=== PATIENT | female | born 1975 | race Caucasian/White ===

== ENCOUNTER 2016-09-01 20:51 | Emergency (ER) | payer BC ==
[2016-09-01] MEDS ORDERED: ATIVAN INJ 2 MG VIAL IVP ONE (21:05)
[2016-09-01] MEDS ORDERED: NS 1000 ML 1,000 ML IV ONE (21:05)
--- NOTE | 2016-09-01 21:07 | DR.GENAD ---
HPI - PCP Primary Care Physician: kyle - Complaint/Symptoms Chief Complaint Doctors Comments: Patient presents with family member with complain of having severe anxiety attack. He states that she has had these attacks for greather than twenty years. They are not sure as to the etiology but lorazepam usually calms her down. She underwent an endoscope last week and had an episode of spasm that resolved overnight. She has no history of seizure or trauma. PMH - PMH Past Medical History: Hypothyroidism Past Surgical History: Yes ROS - Review of Systems Constitutional: No Symptoms Reported Eyes: No Symptoms Reported ENTM: No Symptoms Reported Respiratoy: No Symptoms Reported Cardiovascular: No Symptoms Reported Gastrointestinal/Abdominal: No Symptoms Reported Genitourinary: No Symptoms Reported Neurological: No Symptoms Reported, Other (flexion/extension of extremities) Musculoskeletal: No Symptoms Reported Integumentary: No Symptoms Reported Hematologic/Lymphatic: No Symptoms Reported Endocrine: No Symptoms Reported Psychiatric: No Symptoms Reported All Other Systems: Reviewed and Negative PE - Vital Signs Vitals: Temperature 99 F Pulse Rate [Apical] 95 Pulse Rate 119 Respiratory Rate 18 Blood Pressure [Right Arm] 145/68 Blood Pressure 157/80 O2 Sat by Pulse Oximetry 100 - General Limitations: No Limitations General Appearance: Alert, In No Apparent Distress - Head Head Exam: Normal Inspection, Atraumatic - Eyes Eye exam: Normal Appearance, PERRL, EOMI - ENT ENT Exam: Normal Exam External Ear Exam: Normal External Inspection TM/Canal Exam: Bilateral Normal Nose Exam: Normal Nose Exam Mouth Exam: Normal Inspection Throat Exam: Normal Inspection - Neck Neck Exam: Normal Inspection - Chest Chest Inspection: Normal Inspection - Respiratory Respiratory Exam: Normal Lung Sounds Bilat Respiratory Exam: Bilateral Clear to Auscultation - Cardiovascular Cardiovascular Exam: Regular Rate, Normal Rhythm - Abdominal Exam Abdominal Exam: Normal Inspection, Normal Bowel Sounds Abdominal Tenderness: negative: RUQ, RLQ, LUQ, LLQ, Epigastrium, Suprapubic, Diffuse, Mild, Moderate, Severe, Other - Extremities Extremities Exam: Normal Inspection, Full ROM - Back Back Exam: Normal Inspection, Full ROM - Neurologic Neurological Exam: Alert, Oriented X3, CN II-XII Intact Course - Treatment Treatment: Potassium, NS - Reevaluation 1st: Improved ROR - Labs Reviewed Result Diagrams: 09/01/16 21:49 09/02/16 00:24 Laboratory: WBC 9.5 X10^3/uL (3.6-10.0) 09/01/16 21:49 RBC 4.06 X10^6/uL (3.5-5.4) 09/01/16 21:49 Hgb 10.5 g/dL (12.0-16.0) L 09/01/16 21:49 Hct 32.1 % (36.0-47.0) L 09/01/16 21:49 MCV 79.2 fL (80.0-100.0) L 09/01/16 21:49 MCH 25.9 pg (27.0-34.0) L 09/01/16 21:49 MCHC 32.7 g/dL (33.0-35.0) L 09/01/16 21:49 RDW 14.4 % (11.6-16.5) 09/01/16 21:49 Plt Count 233 X10^3/uL (150.0-450.0) 09/01/16 21:49 Plt Count Comment Adequate (ADEQUATE) 09/01/16 21:49 MPV 9.1 fL (7.4-11.0) 09/01/16 21:49 Neut % 74.9 % (42.0-75.0) 09/01/16 21:49 Lymph % 15.9 % (21.0-51.0) L 09/01/16 21:49 Turner % 8.0 % (0.0-13.0) 09/01/16 21:49 Eos % 0.5 % (0.9-2.9) L 09/01/16 21:49 Baso % 0.7 % (0.2-1.0) 09/01/16 21:49 Neut # 7.2 x10^3/uL (2.2-4.8) H 09/01/16 21:49 Lymph # 1.5 X10^3/uL (1.3-2.9) 09/01/16 21:49 Turner # 0.8 x10^3/uL (0.3-0.8) 09/01/16 21:49 Eos # 0.0 x10^3/uL (0.0-0.2) 09/01/16 21:49 Baso # 0.1 X10^3/uL (0.0-0.1) 09/01/16 21:49 Absolute Nucleated RBC 0.0 /100WBC 09/01/16 21:49 Plt Morphology Comment Normal (NORMAL) 09/01/16 21:49 RBC Morphology Abnormal (NORMAL) A 09/01/16 21:49 Hypochromasia Slight A 09/01/16 21:49 Sodium 140 mmol/L (136-145) 09/01/16 21:49 Corrected Sodium TNP 09/01/16 21:49 Potassium 3.8 mmol/L (3.5-5.1) 09/02/16 00:24 Chloride 105 mmol/L (98-107) 09/01/16 21:49 Carbon Dioxide 21.5 mmol/L (21-32) 09/01/16 21:49 BUN 8 mg/dL (7-18) 09/01/16 21:49 Creatinine 0.64 mg/dL (0.55-1.02) 09/01/16 21:49 Est GFR (MDRD) Af Amer > 60 (>60) 09/01/16 21:49 Est GFR (MDRD) Non-Af > 60 (>60) 09/01/16 21:49 Glucose 100 mg/dL (65-99) H 09/01/16 21:49 Calcium 8.4 mg/dL (8.5-10.1) L 09/01/16 21:49 Corrected Calcium TNP 09/01/16 21:49 Phosphorus 2.4 mg/dL (2.6-4.7) L 09/01/16 21:49 Magnesium 1.6 mg/dL (1.7-2.9) L 09/01/16 21:49 Total Bilirubin 0.60 mg/dL (0.2-1.0) 09/01/16 21:49 AST 13 Units/L (15-37) L 09/01/16 21:49 ALT 17 Units/L (12-78) 09/01/16 21:49 Alkaline Phosphatase 40 Units/L (46-116) L 09/01/16 21:49 Total Protein 7.5 g/dL (6.4-8.2) 09/01/16 21:49 Albumin 3.9 g/dL (3.4-5.0) 09/01/16 21:49 Globulin 3.6 g/dL (2.5-4.5) 09/01/16 21:49 Albumin/Globulin Ratio 1.1 Ratio (1.1-2.1) 09/01/16 21:49 Specimen Type Clean catch urine 09/01/16 23:49 Urine Color Pale yellow (YELLOW) 09/01/16 23:49 Urine Appearance Clear (CLEAR) 09/01/16 23:49 Urine pH 8.0 (5.0 - 8.0) 09/01/16 23:49 Ur Specific [place] 1.010 (1.000-1.030) 09/01/16 23:49 Urine Protein Negative (NEGATIVE) 09/01/16 23:49 Urine Glucose (UA) Negative (NEGATIVE) 09/01/16 23:49 Urine Ketones Negative (NEGATIVE) 09/01/16 23:49 Urine Occult Blood Negative (NEGATIVE) 09/01/16 23:49 Urine Nitrite Negative (NEGATIVE) 09/01/16 23:49 Urine Bilirubin Negative (NEGATIVE) 09/01/16 23:49 Urine Urobilinogen Normal (NORMAL) 09/01/16 23:49 Ur Leukocyte Esterase Negative (NEGATIVE) 09/01/16 23:49 Urine RBC 0-3 /HPF (NEGATIVE) 09/01/16 23:49 Urine WBC 0-3 /HPF (NEGATIVE) 09/01/16 23:49 Ur Squamous Epith Cells Rare /HPF (NEGATIVE) 09/01/16 23:49 Urine Bacteria Negative /HPF (NEGATIVE) 09/01/16 23:49 Ur Culture Indicated? No/not indicated 09/01/16 23:49 - Diagnosis Discharge Problem: Hypokalemia - Discharge Plan Condition: Stable - Follow ups/Referrals Follow ups/Referrals: NFD,None [Primary Care Provider] - 3 days - Instructions
[2016-09-01] MEDS ORDERED: NS 1000 ML 1,000 ML ONE (21:08)
[2016-09-01] MEDS ORDERED: ATIVAN INJ 2 MG VIAL ONE (21:09)
[2016-09-01 21:11] VITALS: BMI 16.9
[2016-09-01 21:56] LABS: BASOPHILS # (AUTO) 0.1 X10^3/uL (0.0-0.1); BASOPHILS % (AUTO) 0.7 % (0.2-1.0); EOSINOPHILS % (AUTO) 0.5 % (0.9-2.9); HEMATOCRIT 32.1 % (36.0-47.0); HEMOGLOBIN 10.5 g/dL (12.0-16.0); LYMPHOCYTES # (AUTO) 1.5 X10^3/uL (1.3-2.9); LYMPHOCYTES % (AUTO) 15.9 % (21.0-51.0); MEAN CORPUSCULAR HEMOGLOBIN 25.9 pg (27.0-34.0); MEAN CORPUSCULAR HGB CONC 32.7 g/dL (33.0-35.0); MEAN CORPUSCULAR VOLUME 79.2 fL (80.0-100.0); MEAN PLATELET VOLUME 9.1 fL (7.4-11.0); MONOCYTES # (AUTO) 0.8 x10^3/uL (0.3-0.8); NEUTROPHILS # (AUTO) 7.2 x10^3/uL (2.2-4.8); NEUTROPHILS % (AUTO) 74.9 % (42.0-75.0); PLATELET COUNT 233 X10^3/uL (150.0-450.0); RED BLOOD COUNT 4.06 X10^6/uL (3.5-5.4); RED CELL DISTRIBUTION WIDTH 14.4 % (11.6-16.5); WHITE BLOOD COUNT 9.5 X10^3/uL (3.6-10.0)
[2016-09-01 22:06] LABS: BLOOD UREA NITROGEN 8 mg/dL (7-18); CALCIUM 8.4 mg/dL (8.5-10.1); CARBON DIOXIDE 21.5 mmol/L (21-32); CHLORIDE 105 mmol/L (98-107); CREATININE 0.64 mg/dL (0.55-1.02); GLUCOSE 100 mg/dL (65-99); SODIUM 140 mmol/L (136-145); eGFR BLACK RACES > 60 (>60); eGFR NON BLACK RACES > 60 (>60)
[2016-09-01 22:11] LABS: ALANINE AMINOTRANSFERASE 17 Units/L (12-78); ALBUMIN 3.9 g/dL (3.4-5.0); ALKALINE PHOSPHATASE 40 Units/L (46-116); ASPARTATE AMINO TRANSFERASE 13 Units/L (15-37); TOTAL PROTEIN 7.5 g/dL (6.4-8.2)
[2016-09-01 22:13] LABS: PLATELET MORPHOLOGY COMMENT NORMAL (NORMAL)
[2016-09-01 22:15] LABS: HYPOCHROMASIA SLIGHT; MAGNESIUM 1.6 mg/dL (1.7-2.9); PHOSPHORUS 2.4 mg/dL (2.6-4.7)
[2016-09-01] MEDS ORDERED: K-LYTE EFFERVESCENT ONE (22:15)
[2016-09-01] MEDS ORDERED: K-DUR TAB 20 MEQ PO ONE ×2 (22:56→23:51)
[2016-09-01] MEDS ORDERED: K-LYTE EFFERVESCENT PO SCH (23:00)
[2016-09-02 00:02] LABS: BILIRUBIN,URINE NEGATIVE (NEGATIVE); BLOOD/HEMOGLOBIN,URINE NEGATIVE (NEGATIVE); GLUCOSE, URINE NEGATIVE (NEGATIVE); KETONES,URINE NEGATIVE (NEGATIVE); LEUKOCYTE ESTERASE ,URINE NEGATIVE (NEGATIVE); NITRITES,URINE NEGATIVE (NEGATIVE); PROTEIN,URINE NEGATIVE (NEGATIVE); UROBILINOGEN,URINE NORMAL (NORMAL)
[2016-09-02 00:09] LABS: APPEARANCE,URINE CLEAR (CLEAR); BACTERIA,URINE NEGATIVE /HPF (NEGATIVE); COLOR,URINE PALE YELLOW (YELLOW); RBC,URINE 0-3 /HPF (NEGATIVE); SQUAMOUS EPITHELIAL CELL,UR RARE /HPF (NEGATIVE)
[2016-09-02 01:12] VITALS: BP 146/86
== END 2016-09-02 01:05 | disposition home or self-care (01) ==
LOC: ER 20:51
DX: E87.6 Hypokalemia (principal); F41.8 Other specified anxiety disorders
CPT/HCPCS: 36415; 80053; 81001; 83735; 84100; 84132; 85025; 96365; 96374; 99283; A4222; J2060

== ENCOUNTER 2017-12-10 13:37 | Observation (INO) ==
[2017-12-10] MEDS ORDERED: ZOFRAN INJ 4 MG VIAL 16 MG, ATIVAN INJ 2 MG VIAL 1 MG, DECADRON INJ 10 MG in NS 50 ML I... IV PRN (13:57)
--- NOTE | 2017-12-10 14:21 | RAD ---
Chest AP portable Indication: Dyspnea and tachycardia Comparison: No recent prior radiographs Findings: Monitoring leads obscure minimal detail. There is no pneumothorax, effusion or consolidation. Heart size is normal. Impression: No acute chest process Reported By:
[2017-12-10 14:32] VITALS: BMI 20.5
[2017-12-10 14:47] LABS: BASOPHILS # (AUTO) 0.1 X10^3/uL (0.0-0.1); BASOPHILS % (AUTO) 0.6 % (0.2-1.0); EOSINOPHILS % (AUTO) 0.1 % (0.9-2.9); HEMATOCRIT 36.9 % (36.0-47.0); HEMOGLOBIN 12.4 g/dL (12.0-16.0); LYMPHOCYTES # (AUTO) 0.9 X10^3/uL (1.3-2.9); LYMPHOCYTES % (AUTO) 10.5 % (21.0-51.0); MEAN CORPUSCULAR HEMOGLOBIN 28.6 pg (27.0-34.0); MEAN CORPUSCULAR HGB CONC 33.7 g/dL (33.0-35.0); MEAN CORPUSCULAR VOLUME 84.8 fL (80.0-100.0); MEAN PLATELET VOLUME 9.5 fL (7.4-11.0); MONOCYTES # (AUTO) 0.5 x10^3/uL (0.3-0.8); MONOCYTES % (AUTO) 5.9 % (0.0-13.0); NEUTROPHILS # (AUTO) 7.3 x10^3/uL (2.2-4.8); NEUTROPHILS % (AUTO) 82.9 % (42.0-75.0); PLATELET COUNT 263 X10^3/uL (150.0-450.0); RED BLOOD COUNT 4.35 X10^6/uL (3.5-5.4); RED CELL DISTRIBUTION WIDTH 14.5 % (11.6-16.5); WHITE BLOOD COUNT 8.8 X10^3/uL (3.6-10.0)
[2017-12-10] MEDS: LOPRESSOR TAB 25 MG PO SCH (14:51)
[2017-12-10] MEDS: NS 1000 ML 1,000 ML IV SCH (14:51)
[2017-12-10 15:02] LABS: BILIRUBIN,URINE NEGATIVE (NEGATIVE); BLOOD/HEMOGLOBIN,URINE 1+ (NEGATIVE); GLUCOSE, URINE NEGATIVE (NEGATIVE); KETONES,URINE 3+ (NEGATIVE); LEUKOCYTE ESTERASE ,URINE 1+ (NEGATIVE); NITRITES,URINE NEGATIVE (NEGATIVE); PROTEIN,URINE NEGATIVE (NEGATIVE); UROBILINOGEN,URINE NORMAL (NORMAL)
[2017-12-10 15:06] LABS: BLOOD UREA NITROGEN 4 mg/dL (7-18); CALCIUM 9.3 mg/dL (8.5-10.1); CARBON DIOXIDE 25.5 mmol/L (21-32); CHLORIDE 104 mmol/L (98-107); CREATININE 0.58 mg/dL (0.55-1.02); SODIUM 140 mmol/L (136-145); TROPONIN I < 0.02 ng/mL (0-1.5); eGFR NON BLACK RACES > 60 (>60)
[2017-12-10 15:08] LABS: APPEARANCE,URINE CLEAR (CLEAR); BACTERIA,URINE 1+ /HPF (NEGATIVE); COLOR,URINE PALE YELLOW (YELLOW); MUCUS,URINE MANY /HPF (NEGATIVE); RBC,URINE 0-2 /HPF (NONE SEEN); SQUAMOUS EPITHELIAL CELL,UR MODERATE /HPF (NEGATIVE)
[2017-12-10 15:09] LABS: ALANINE AMINOTRANSFERASE 17 Units/L (12-78); ALBUMIN 4.2 g/dL (3.4-5.0); ALKALINE PHOSPHATASE 46 Units/L (46-116); ASPARTATE AMINO TRANSFERASE 17 Units/L (15-37); CKMB % 2.3 % (<4); CREATINE KINASE 43 Units/L (26-192); CREATINE KINASE MB < 1.0 ng/mL (0-4.0); FREE T4 (FREE THYROXINE) 0.95 ng/dL (0.76-1.46); TSH (3RD GENERATION) 5.361 uIU/mL (0.358-3.74)
[2017-12-10 15:21] LABS: MAGNESIUM 1.8 mg/dL (1.7-2.9)
[2017-12-10] MEDS ORDERED: K-LYTE EFFERVESCENT PO PRN (15:29)
[2017-12-10] MEDS ORDERED: POTASSIUM CHL 40 MEQ/NS 0.45% 500 ML IV PRN (15:29)
[2017-12-10] MEDS ORDERED: K-RIDER 10 MEQ/NS 100 ML 10 MEQ/100 ML BAG IV PRN (15:29)
[2017-12-10] MEDS ORDERED: POTASSIUM CHL 60 MEQ/NS 0.45% 500 ML IV PRN (15:29)
[2017-12-10] MEDS ORDERED: POTASSIUM CHLORIDE LIQ 20 MEQ UDC PO PRN (15:29)
[2017-12-10 15:34] LABS: IRON 50 ug/dL (50-175)
[2017-12-10] MEDS ORDERED: ATIVAN TAB 1 MG PO PRN (17:26)
--- NOTE | 2017-12-10 17:32 | DR.H&P ---
H&P - History & Physical for Day of: H&P Date: 12/10/17 - Chief Complaint Chief Complaint: sob, palpitations, weakness - History of Present Illness History of Present Illness: 42 WF DIRECT ADMIT FROM DR ELLIS OFFICE WITH CO CHEST PRESSURE, SOB, TACHYCARDIA. HEART RATE 130'S IN THE OFFICE. PT HAS PMH OF THYROID DISEASE AND RECENTLY TREATED WITH SAME SYMPTOMS AT [facility] ER FOR HYPOKALEMIA. PT ADMITTED FOR TREATMENT AND EVALUATION OF SOB, TACHYCARDIA, WEAKNESS. - Past Medical History Past Medical History: Anxiety, Hypothyroidism Additional Medical History: MVP - Past Surgical History Surgical History: Appendectomy, Cholecystectomy - Family History Family Medical History: Hypertension - Social History Does patient currently use any type of tobacco product: No Have you used tobacco products in the last 12 months: No Type of Tobacco Use: None Does any household member use tobacco: No Alcohol Use: None Drug Use: None - Medications Home Medications: Penicillins Allergy (Verified 11/26/17 14:49) CONTINUE taking the following medications lorazepam [Ativan] 1 mg PO BID PRN 12/10/17 [History] thyroid (pork) [[place] Thyroid] 15 mg PO ONCE 12/10/17 [History] - Review of Systems Constitutional: Weakness Eyes: No Symptoms Reported ENT: No Symptoms Reported Respiratory: Shortness of Breath Cardiovascular: Palpitations, Light Headedness Gastrointestinal: No Symptoms Reported Musculoskeletal: Other (MUSCLE CRAMPS) Skin: Other (SKIN PARESTHESIAS) - Physical Exam Vital Signs: Temperature 98.4 F Pulse Rate [Apical] 97 Respiratory Rate 16 Blood Pressure [Left Arm] 142/84 Blood Pressure [Right Arm] 124/78 Blood Pressure 142/79 O2 Sat by Pulse Oximetry 98 Oriented: Normal Eyes: Normal Ear: Normal Throat: Normal Respiratory: Clear Throughout Cardiovascular: Tachycardia : Normal Auscultation: Bowel Sounds: Normal Palpation: Normal Tenderness: Normal Skin: Normal Musculoskeletal: Right, Left, Shoulder, Back:Lumbar Psychiatric: Anxiety Mood Description: Anxious Affect: Anxious Speech Pattern: Clear, Appropriate - Assessment/Plan (1) SOB (shortness of breath) Status: Acute Plan: ADMIT, CARDIAC MONITORING, SERIAL CE AND EKG. BP MONIORING. HS MVP, LOPRESSOR 12.5MG PO BID. ADMISSION LABS, MAG, D DIMER. TSH FREET4 T3 (2) Tachycardia Status: Acute (3) Hypothyroidism Status: Acute (4) Hypokalemia Status: Acute Plan: POTASSIUM REPLACEMENT (5) Thyromegaly Status: Acute Plan: THRYOID US, THYROID LEVELS - Allergies Allergies/Adverse Reactions: Allergies Allergy/AdvReac Type Severity Reaction Status Date / Time Penicillins Allergy Verified 11/26/17 14:49
[2017-12-10] MEDS: TYLENOL 325 MG TAB PO PRN (18:17)
[2017-12-10] MEDS: PROTONIX INJ 40 MG VIAL IVP SCH (18:55)
[2017-12-10 21:40] LABS: CREATINE KINASE 33 Units/L (26-192); CREATINE KINASE MB < 1.0 ng/mL (0-4.0); TROPONIN I < 0.02 ng/mL (0-1.5)
[2017-12-11] MEDS: LOPRESSOR TAB 25 MG PO SCH ×3 (00:16→23:06)
[2017-12-11] MEDS ORDERED: TYLENOL 325 MG TAB PO ONE (00:29)
[2017-12-11] MEDS: TYLENOL 325 MG TAB PO PRN (00:39)
[2017-12-11 02:23] LABS: CKMB % 2.8 % (<4); CREATINE KINASE 36 Units/L (26-192); CREATINE KINASE MB < 1.0 ng/mL (0-4.0); TROPONIN I < 0.02 ng/mL (0-1.5)
[2017-12-11] MEDS ORDERED: NS 1000 ML 1,000 ML ONE (03:29)
[2017-12-11] MEDS: NS 1000 ML 1,000 ML IV SCH ×3 (03:30→18:14)
[2017-12-11 06:48] LABS: BASOPHILS # (AUTO) 0.1 X10^3/uL (0.0-0.1); BASOPHILS % (AUTO) 0.8 % (0.2-1.0); EOSINOPHILS % (AUTO) 0.6 % (0.9-2.9); HEMATOCRIT 31.1 % (36.0-47.0); HEMOGLOBIN 10.6 g/dL (12.0-16.0); LYMPHOCYTES # (AUTO) 1.8 X10^3/uL (1.3-2.9); LYMPHOCYTES % (AUTO) 25.2 % (21.0-51.0); MEAN CORPUSCULAR HEMOGLOBIN 29.2 pg (27.0-34.0); MEAN CORPUSCULAR HGB CONC 34.2 g/dL (33.0-35.0); MEAN CORPUSCULAR VOLUME 85.4 fL (80.0-100.0); MEAN PLATELET VOLUME 9.7 fL (7.4-11.0); MONOCYTES # (AUTO) 0.5 x10^3/uL (0.3-0.8); MONOCYTES % (AUTO) 7.5 % (0.0-13.0); NEUTROPHILS # (AUTO) 4.7 x10^3/uL (2.2-4.8); NEUTROPHILS % (AUTO) 65.9 % (42.0-75.0); PLATELET COUNT 221 X10^3/uL (150.0-450.0); RED BLOOD COUNT 3.64 X10^6/uL (3.5-5.4); WHITE BLOOD COUNT 7.1 X10^3/uL (3.6-10.0)
[2017-12-11 07:16] LABS: ALANINE AMINOTRANSFERASE 15 Units/L (12-78); ALBUMIN 3.4 g/dL (3.4-5.0); ALKALINE PHOSPHATASE 38 Units/L (46-116); ASPARTATE AMINO TRANSFERASE 11 Units/L (15-37); BLOOD UREA NITROGEN 3 mg/dL (7-18); CALCIUM 8.2 mg/dL (8.5-10.1); CHLORIDE 108 mmol/L (98-107); CREATININE 0.54 mg/dL (0.55-1.02); SODIUM 140 mmol/L (136-145); TOTAL PROTEIN 6.5 g/dL (6.4-8.2); eGFR NON BLACK RACES > 60 (>60)
[2017-12-11] MEDS: PROTONIX INJ 40 MG VIAL IVP SCH (09:00)
[2017-12-11] MEDS ORDERED: IMODIUM CAP 2 MG PO PRN (11:07)
[2017-12-11] MEDS: ATIVAN INJ 2 MG VIAL IVP PRN ×2 (11:25→22:24)
[2017-12-11] MEDS: TORADOL 30 MG VIAL IVP PRN ×2 (11:25→22:18)
--- NOTE | 2017-12-11 12:40 | CT ---
History: Shortness of breath and elevated D-dimer Study: CTA chest utilizing 75 mL Omnipaque 350 IV contrast. Sagittal and coronal and axial MIPS of th e pulmonary arteries were displayed. Comparison: None Findings: The lungs are clear. There is no pleural effusion. The heart size is normal. There is no ad enopathy. There is no hiatal hernia. No pulmonary embolus is demonstrated. The visualized upper abdom en is unremarkable status post cholecystectomy. No bony abnormality is demonstrated. Impression: No evidence for pulmonary embolus or acute cardiopulmonary disease Reported By:
[2017-12-11] MEDS: QUESTRAN POWDER FOR ORAL SUSP PO SCH (18:19)
[2017-12-12 05:12] LABS: BILIRUBIN,URINE NEGATIVE (NEGATIVE); BLOOD/HEMOGLOBIN,URINE NEGATIVE (NEGATIVE); GLUCOSE, URINE NEGATIVE (NEGATIVE); KETONES,URINE NEGATIVE (NEGATIVE); LEUKOCYTE ESTERASE ,URINE 2+ (NEGATIVE); NITRITES,URINE NEGATIVE (NEGATIVE); PROTEIN,URINE 1+ (NEGATIVE); UROBILINOGEN,URINE NORMAL (NORMAL)
[2017-12-12 05:27] LABS: APPEARANCE,URINE SLIGHTLY HAZY (CLEAR); BACTERIA,URINE TRACE /HPF (NEGATIVE); COLOR,URINE YELLOW (YELLOW); RBC,URINE NONE SEEN /HPF (NONE SEEN); SQUAMOUS EPITHELIAL CELL,UR MANY /HPF (NEGATIVE)
[2017-12-12 05:28] LABS: MUCUS,URINE NUMEROUS /HPF (NEGATIVE)
[2017-12-12 05:40] LABS: BASOPHILS # (AUTO) 0.1 X10^3/uL (0.0-0.1); BASOPHILS % (AUTO) 1.1 % (0.2-1.0); EOSINOPHILS # (AUTO) 0.1 x10^3/uL (0.0-0.2); EOSINOPHILS % (AUTO) 1.1 % (0.9-2.9); HEMATOCRIT 27.2 % (36.0-47.0); HEMOGLOBIN 9.4 g/dL (12.0-16.0); LYMPHOCYTES # (AUTO) 1.6 X10^3/uL (1.3-2.9); LYMPHOCYTES % (AUTO) 26.1 % (21.0-51.0); MEAN CORPUSCULAR HEMOGLOBIN 29.2 pg (27.0-34.0); MEAN CORPUSCULAR HGB CONC 34.4 g/dL (33.0-35.0); MEAN PLATELET VOLUME 9.9 fL (7.4-11.0); MONOCYTES # (AUTO) 0.6 x10^3/uL (0.3-0.8); MONOCYTES % (AUTO) 9.2 % (0.0-13.0); NEUTROPHILS # (AUTO) 3.8 x10^3/uL (2.2-4.8); NEUTROPHILS % (AUTO) 62.5 % (42.0-75.0); PLATELET COUNT 181 X10^3/uL (150.0-450.0); RED CELL DISTRIBUTION WIDTH 14.3 % (11.6-16.5); WHITE BLOOD COUNT 6.1 X10^3/uL (3.6-10.0)
[2017-12-12 05:50] LABS: ALANINE AMINOTRANSFERASE 13 Units/L (12-78); ALBUMIN 2.8 g/dL (3.4-5.0); ALKALINE PHOSPHATASE 35 Units/L (46-116); ASPARTATE AMINO TRANSFERASE 8 Units/L (15-37); BLOOD UREA NITROGEN 6 mg/dL (7-18); CALCIUM 7.8 mg/dL (8.5-10.1); CARBON DIOXIDE 24.6 mmol/L (21-32); CHLORIDE 110 mmol/L (98-107); COR CA(FOR HYPOALB) 8.8 mg/dL (8.5-10.1); COR NA(FOR HYPERGLY) 140 mmol/L (136-145); CREATININE 0.53 mg/dL (0.55-1.02); SODIUM 140 mmol/L (136-145); TOTAL PROTEIN 5.4 g/dL (6.4-8.2); eGFR NON BLACK RACES > 60 (>60)
[2017-12-12] MEDS ORDERED: K-DUR TAB 20 MEQ PO ONE (08:23)
[2017-12-12] MEDS: PROTONIX INJ 40 MG VIAL IVP SCH (08:37)
[2017-12-12] MEDS: LOPRESSOR TAB 25 MG PO SCH ×2 (08:38→10:02)
[2017-12-12] MEDS: QUESTRAN POWDER FOR ORAL SUSP PO SCH ×2 (08:38→09:05)
[2017-12-12] MEDS ORDERED: POTASSIUM CHLORIDE LIQ 20 MEQ UDC PO SCH (09:00)
[2017-12-12] MEDS ORDERED: POTASSIUM CHLORIDE LIQ 20 MEQ UDC PO NR (09:00)
[2017-12-12] MEDS: ATIVAN INJ 2 MG VIAL IVP PRN (10:56)
--- NOTE | 2017-12-12 11:41 | VAS ---
History: Leg swelling with elevated D-dimer Study: Doppler ultrasound of the deep veins of both lower extremities Comparison: None Findings: The deep veins from the common femoral to the popliteal veins are widely patent with good c ompression and augmentation. Impression: No evidence for deep venous thrombosis Reported By:
--- NOTE | 2017-12-12 12:11 | US ---
History: Abnormal TSH Study: Ultrasound of the thyroid Findings: The right lobe measures 4 x 1.52 x 1.35 cm. The left lobe measures 3.92 x 1.6 x 1.12 cm. Th e isthmus measures 3.1 mm thickness. There is heterogeneous echogenicity. There are several small lef t thyroid hypoechoic nodules. There is some linear septa. There is mildly increased vascularity demon strated on the right. Impression: Findings suggest Alvaro thyroiditis that may be chronic Reported By:
[2017-12-12] MEDS: TORADOL 30 MG VIAL IVP PRN (14:48)
--- NOTE | 2017-12-12 15:23 | RAD ---
History: Nausea and vomiting and diarrhea Study: Acute abdominal series Comparison: None Findings: The lungs are clear and the heart and mediastinum are unremarkable. There is no free air. T he bowel gas pattern is normal. There are cholecystectomy clips. There are surgical clips in the righ t lower quadrant of the abdomen as well. No significant bony abnormality is demonstrated. Impression: No acute disease Reported By:
[2017-12-12] MEDS: NS 1000 ML 1,000 ML IV SCH (15:55)
[2017-12-12 16:30] VITALS: BP 121/71
[2017-12-15 11:16] LABS: ANTI-NUCLEAR ANTIBODY TEST None Detected (None Detected)
--- NOTE | 2017-12-29 23:37 | PCM.DCPLAN ---
Discharge Summary - Admission Date Date of Admission: 12/10/17 - Discharge Date Discharge Date: 12/12/17 - Admission Diagnoses (1) Hypokalemia Status: Acute (2) SOB (shortness of breath) Status: Acute (3) Tachycardia Status: Acute (4) Thyromegaly Status: Acute (5) Hypothyroidism Status: Acute - Discharge Diagnoses Discharge Diagnosis: SAME ADMISSION DIAGNOSIS - Discharge Medications Discharge Medications: Home Medication List lorazepam [Ativan] 1 mg PO BID PRN 12/10/17 [History] colesevelam [WelChol] 625 mg PO BID #60 tab 12/12/17 [Rx] potassium chloride [Klor-Con Sprinkle] 8 meq PO DAILY #14 cap 12/12/17 [Rx] Prescriptions: colesevelam [WelChol] NARAYAN,HOME potassium chloride [Klor-Con Sprinkle] NARAYAN,HOME - Hospital Course Vital Signs: Temperature 98.5 F Pulse Rate [Apical] 81 Respiratory Rate 19 Blood Pressure [Left Arm] 121/71 Blood Pressure [Right Arm] 123/71 Blood Pressure 142/79 O2 Sat by Pulse Oximetry 100 Latest Lab Results: Laboratory Last Values WBC 6.1 X10^3/uL (3.6-10.0) 12/12/17 04:20 RBC 3.20 X10^6/uL (3.5-5.4) L 12/12/17 04:20 Hgb 9.4 g/dL (12.0-16.0) L 12/12/17 04:20 Hct 27.2 % (36.0-47.0) L 12/12/17 04:20 MCV 85.0 fL (80.0-100.0) 12/12/17 04:20 MCH 29.2 pg (27.0-34.0) 12/12/17 04:20 MCHC 34.4 g/dL (33.0-35.0) 12/12/17 04:20 RDW 14.3 % (11.6-16.5) 12/12/17 04:20 Plt Count 181 X10^3/uL (150.0-450.0) 12/12/17 04:20 MPV 9.9 fL (7.4-11.0) 12/12/17 04:20 Neut % (Auto) 62.5 % (42.0-75.0) 12/12/17 04:20 Lymph % (Auto) 26.1 % (21.0-51.0) 12/12/17 04:20 [place] % (Auto) 9.2 % (0.0-13.0) 12/12/17 04:20 Eos % (Auto) 1.1 % (0.9-2.9) 12/12/17 04:20 Baso % (Auto) 1.1 % (0.2-1.0) H 12/12/17 04:20 Neut # (Auto) 3.8 x10^3/uL (2.2-4.8) 12/12/17 04:20 Lymph # (Auto) 1.6 X10^3/uL (1.3-2.9) 12/12/17 04:20 [place] # (Auto) 0.6 x10^3/uL (0.3-0.8) 12/12/17 04:20 Eos # (Auto) 0.1 x10^3/uL (0.0-0.2) 12/12/17 04:20 Baso # (Auto) 0.1 X10^3/uL (0.0-0.1) 12/12/17 04:20 Absolute Nucleated RBC 0.0 /100WBC 12/12/17 04:20 D-Dimer 1020 ng/mL (0-400) H* 12/10/17 14:03 Sodium 140 mmol/L (136-145) 12/12/17 04:20 Corrected Sodium 140 mmol/L (136-145) 12/12/17 04:20 Potassium 4.1 mmol/L (3.5-5.1) 12/12/17 11:51 Chloride 110 mmol/L (98-107) H 12/12/17 04:20 Carbon Dioxide 24.6 mmol/L (21-32) 12/12/17 04:20 BUN 6 mg/dL (7-18) L 12/12/17 04:20 Creatinine 0.53 mg/dL (0.55-1.02) L 12/12/17 04:20 Est GFR (MDRD) Af Amer > 60 (>60) 12/12/17 04:20 Est GFR (MDRD) Non-Af > 60 (>60) 12/12/17 04:20 Glucose 111 mg/dL (65-99) H 12/12/17 04:20 Calcium 7.8 mg/dL (8.5-10.1) L 12/12/17 04:20 Corrected Calcium 8.8 mg/dL (8.5-10.1) 12/12/17 04:20 Magnesium 1.8 mg/dL (1.7-2.9) 12/10/17 14:03 Iron 50 ug/dL (50-175) 12/10/17 14:03 Transferrin 365 mg/dL (202-364) H 12/10/17 14:03 Ferritin 8 ng/mL (8-252) 12/10/17 14:03 Total Bilirubin 0.40 mg/dL (0.2-1.0) 12/12/17 04:20 AST 8 Units/L (15-37) L 12/12/17 04:20 ALT 13 Units/L (12-78) 12/12/17 04:20 Alkaline Phosphatase 35 Units/L (46-116) L 12/12/17 04:20 Creatine Kinase 36 Units/L (26-192) 12/11/17 00:42 CK-MB (CK-2) < 1.0 ng/mL (0-4.0) 12/11/17 00:42 CK/CKMB % Calc 2.8 % (<4) 12/11/17 00:42 Troponin I < 0.02 ng/mL (0-1.5) 12/11/17 00:42 Total Protein 5.4 g/dL (6.4-8.2) L 12/12/17 04:20 Albumin 2.8 g/dL (3.4-5.0) L 12/12/17 04:20 Globulin 2.6 g/dL (2.5-4.5) 12/12/17 04:20 Albumin/Globulin Ratio 1.1 Ratio (1.1-2.1) 12/12/17 04:20 Vitamin B12 601 pg/mL (193-986) 12/10/17 14:03 Folate 18.4 ng/mL (>8.6) 12/10/17 14:03 Free T4 0.95 ng/dL (0.76-1.46) 12/10/17 14:03 Free T3 pg/dL 3.1 pg/mL (2.4-4.2) 12/10/17 14:03 TSH 3rd Generation 5.361 uIU/mL (0.358-3.74) H 12/10/17 14:03 Cortisol 13.2 ug/dL 12/11/17 05:47 Specimen Type Clean catch urine 12/12/17 04:32 Urine Color Yellow (YELLOW) 12/12/17 04:32 Urine Appearance Slightly hazy (CLEAR) 12/12/17 04:32 Urine pH 5.0 (5.0 - 8.0) 12/12/17 04:32 Ur Specific [place] 1.020 (1.000-1.030) 12/12/17 04:32 Urine Protein 1+ (NEGATIVE) 12/12/17 04:32 Urine Glucose (UA) Negative (NEGATIVE) 12/12/17 04:32 Urine Ketones Negative (NEGATIVE) 12/12/17 04:32 Urine Occult Blood Negative (NEGATIVE) 12/12/17 04:32 Urine Nitrite Negative (NEGATIVE) 12/12/17 04:32 Urine Bilirubin Negative (NEGATIVE) 12/12/17 04:32 Urine Urobilinogen Normal (NORMAL) 12/12/17 04:32 Ur Leukocyte Esterase 2+ (NEGATIVE) 12/12/17 04:32 Urine RBC None seen /HPF (NONE SEEN) 12/12/17 04:32 Urine WBC 3-5 /HPF (NONE SEEN) 12/12/17 04:32 Ur Squamous Epith Cells Many /HPF (NEGATIVE) 12/12/17 04:32 Urine Bacteria Trace /HPF (NEGATIVE) 12/12/17 04:32 Urine Mucus Numerous /HPF (NEGATIVE) 12/12/17 04:32 Ur Culture Indicated? No/not indicated 12/12/17 04:32 SUKHWINDER Screen None detected (None Detected) 12/11/17 05:47 SUKHWINDER Titer TNP 12/11/17 05:47 SUKHWINDER Pattern TNP 12/11/17 05:47 Hospital Course: 42 WF DIRECT ADMIT FROM DR ELLIS OFFICE WITH CO CHEST PRESSURE, SOB, TACHYCARDIA. HEART RATE 130'S IN THE OFFICE. PT HAS PMH OF THYROID DISEASE AND RECENTLY TREATED WITH SAME SYMPTOMS AT [facility] ER FOR HYPOKALEMIA. PT ADMITTED FOR TREATMENT AND EVALUATION OF SOB, TACHYCARDIA, WEAKNESS. LABS WERE REVIEWED. VITAL SIGNS WERE STABLE. PATIENT WAS DISCHARGED HOME TO BE FOLLOWED IN OP SETTING. - Discharge Plan Disposition: 01 HOME, SELF-CARE Condition: Stable Prescriptions: colesevelam [WelChol] 625 mg PO BID #60 tab potassium chloride [Klor-Con Sprinkle] 8 meq PO DAILY #14 cap - Follow ups/Referrals Follow ups/Referrals: HOME BUSCH [Primary Care Provider] - 12/20/17 9:15 am - Instructions Instructions: Hypokalemia, Sinus Tachycardia, Low-Fat Diet for Pancreatitis or Gallbladder Conditions, Potassium Content of Foods Additional Instructions: REST USE WELCHOL PO FOR DECREASE IN DIARRHEA PT HAD HYPOKALEMIA MOST LIKELY FROM IBS, CHRONIC DIARRHEA S/P CHOLECYSTECTOMY PT RX FOR PO POTASSIUM REPLACEMENT X 10-14 DAYS UNTIL SHE CAN HAVE REPEAT CMP IN ONE WEEK, PT HAS APPT WITH [facility] [place] FOR THYROIDIT[place], PT CURRENTLY HOLDING THYROID MEDS DUE TO "INDUCING TACHYCARDIA" PT REFUSED METOPROLOL FOR PALIPITAIONS/TACHYCARDIA, HAS TAKEN IN THE PAST WILL D/ CHOME ON LOPRESSOR 12.5 PO BID SINUS TACHYCARDIA, WILL NEED HOLTER MONITOR FOR 24 ON OPT BASIS KEEP BP DIARY. HYDRATE, REST, NEEDS SSRI FOR DAILY ANXIETY REFER TO [facility] COUNSELING SERVICES FOR ANXIETY MANAGEMENT RETURN TO ER IF CONDITION CHANGES OR WORSENS STOOL STUDIES IF UNABLE TO OBTAIN WHILE INPT. Forms: Patient Portal
== END 2017-12-12 16:30 | disposition home or self-care (01) ==
LOC: ICU
PROVIDERS: ADMIT Internal Medicine; ATTEND Internal Medicine
DX: M79.89 Other specified soft tissue disorders; E03.8 Other specified hypothyroidism; R07.89 Other chest pain; R06.02 Shortness of breath; R22.43 Localized swelling, mass and lump, lower limb, bilateral; R11.2 Nausea with vomiting, unspecified; R53.1 Weakness; E87.6 Hypokalemia; R00.0 Tachycardia, unspecified; R19.7 Diarrhea, unspecified
CPT/HCPCS: 36415; 71010; 71045; 71275; 74022; 76536; 80053; 81001; 82533; 82550; 82553; 82607; 82728; 82746; 83540; 83735; 84132; 84439; 84443; 84466; 84481; 84484; 85025; 85378; 86038; 86308; 93005; 93010; 93970; C9113; G0378; J1885; J2060; J3480; J3490; J7030

== ENCOUNTER 2020-04-18 09:03 | Observation (INO) ==
[2020-04-18 09:10] VITALS: BMI 21.2
--- NOTE | 2020-04-18 09:15 | DR.EXTPAIN ---
HPI Time seen Time Seen by Provider: 04/18/20 09:15 PCP Primary Care Physician: HOME AMBROSE HPI Comment HPI Comment: PATIENT IS 44YR OLD FEMALE IN ERWITH SUDDEN ONSET OF LEFT SHOULDER PAIN. SHE HAS 8/10 PAIN. NO FEVER OR TRAUMA. FEEL BETTER HOLDING SHOULDER UP. HAVE HAD PREVIOUS SHOULDER DISLOCATION.PAIN RADIATES TO LEFT SHOULDER BLADE. Complaint/Symptoms Chief Complaint Doctor Comments: LEFT SHOULDER PAIN. Chief Complaint:: PT C/O LEFT SHOULDER PAIN Self Treatment fo Chief Complaint: PRIOR TO COMING TO ER PT WAS GETTING READY FOR CONFUCIANISM PT STATES SHE IS NOT ABLE TO PUT HER LEFT SHOULDER DOWN , PT HAS HAD IT GO OUT OF PLACE BUT PAIN HAS NEVER BEEN THIS BAD , PTS HR > AND PT IS VERY TEARFUL ,,BR COVID-19 Coronavirus risk:travel/contact w/high risk person: No Has patient experienced Coronavirus symptoms: No Nurses notes reviewed Nurses Notes Review: Yes Source History Provided: Patient Mode of arrival Mode of Arrival: Ambulatory Timing Onset of Chief Complaint: 04/18/20 Context History of: None Associated signs and symptoms Associated Signs and Symptoms: Pain PMH PMH Past Medical History: Yes Past Medical History: Anxiety, Headaches and Hypertension Past Surgical History: Yes Surgical History: Appendectomy, Cholecystectomy and [employer] Surgery Family History History of Family Medical Conditions: No Family Medical History: Diabetes Mellitus, Cancer and [place] Social History Does patient currently use any type of tobacco product: No Have you used tobacco products in the last 12 months: No Type of Tobacco Use: None Does any household member use tobacco: No Alcohol Use: None Do you use any recreational Drugs:: No Lives With: Family Lives Where: Home Travel Risk Coronavirus risk:travel/contact w/high risk person: No Has patient experienced Coronavirus symptoms: No Infectious screening In the last 2 months have you had wt loss of >10#?: NO Have you had fever, night sweats or hemotysis?: No Have you traveled outside the country in the last 6 months?: No Isolation: Standard ROS Review of Systems Constitutional: No Symptoms Reported and See HPI; negative Fever, Weakness and Fatigue Eyes: No Symptoms Reported and See HPI ENTM: No Symptoms Reported and See HPI; negative Nose Discharge and Nose Congestion Respiratoy: No Symptoms Reported and See HPI; negative Short of Breath and Wheezing Cardiovascular: No Symptoms Reported, See HPI and Chest Pain (LEFT SCAPULAR PAIN.); negative Edema and Palpitations Gastrointestinal/Abdominal: No Symptoms Reported and See HPI; negative Abdominal Pain, Nausea and Vomiting Genitourinary: No Symptoms Reported and See HPI; negative Dysuria, Frequency and Hematuria Neurological: No Symptoms Reported and See HPI; negative Headache, Weakness and Dizziness Musculoskeletal: See HPI, Chest wall (LEFT SCAPULAR PAIN) and Shoulder (LEFT SHOULDER PAIN.) Integumentary: No Symptoms Reported and See HPI; negative Change in Color, Rash and Juandice Hematologic/Lymphatic: No Symptoms Reported and See HPI; negative Easy Bruising and Swollen Glands Endocrine: No Symptoms Reported and See HPI; negative Increased Thirst and Increased Urine Psychiatric: No Symptoms Reported and See HPI All Other Systems: Reviewed and Negative PE Vital Signs Vitals: Temperature 98.3 F Pulse Rate 90 Respiratory Rate 20 Blood Pressure [Left Arm] 130/72 Blood Pressure [Right Arm] 123/71 Blood Pressure 105/56 O2 Sat by Pulse Oximetry 100 General Limitations: No Limitations General Appearance: Alert and In No Apparent Distress Head Head Exam: Normal Inspection Eyes Eye exam: Normal Appearance and PERRL; negative Scleral Icterus and Conjunctival Injection ENT ENT Exam: Normal Exam, Normal Oropharynx, Normal External Ear Exam and TM's Normal Bilaterally Neck Neck Exam: Normal Inspection and Trachea Midline; negative Tenderness and Lymphadenopathy Chest Chest Inspection: Normal Inspection and Symmetric Chest Wall Rise; negative Tenderness Respiratory Respiratory Exam: Normal Lung Sounds Bilat; negative Accessory Muscle Use, Chest Wall Tenderness and Respiratory Distress Respiratory Exam: Bilateral: Clear to Auscultation Cardiovascular Cardiovascular Exam: Regular Rate, Normal Rhythm and Normal Heart Sounds; negative Systolic Murmur and Diastolic Murmur Abdominal Exam Abdominal Exam: Normal Inspection, Normal Bowel Sounds and Soft; negative Tenderness Extremities Extremities Exam: Normal Inspection, Tenderness (LEFT SHOULDER TENDERNESS WITH DECREASE ROM.) and Normal Capillary Refill Upper Extremities Shoulder Exam: Tenderness; negative Full ROM Back Back Exam: Normal Inspection; negative (R) CVA Tenderness and (L) CVA Tenderness Neurological Neurological Exam: Alert, Oriented X3 and CN II-XII Intact; negative Motor Sensory Deficit Psychiatric Psychiatric Exam: Normal Affect and Normal Mood Skin Skin Exam: Warm, Dry, Intact and Normal Color MDM Differential Diagnosis Differential Diagnosis: Contusion (LT SHOULDER.), Fracture (LT SHOULDER.), Sprain (LT SHOULDER) and Other (LEFT SHOULDER PAIN, [place].) COURSE Treatment Treatment: SEE ORDERS. DILAUDID 1MG IV, ZOFRAN 4MG IV. PAIN STILL 8/10. DILAUDID IMG IV, ATIVAN 2MG IV AND NS 125MG IV. Reevaluation 1st: Unchanged 2nd: Improved (PAIN IMPROVING.) Consultation Consultation Comments: DISCUSSED PATIENT WITH DR. MILLS. HE WILL ADMIT PATIENT. Education/Counseling Education/Counseling: Patient and Family Educated On: Diagnosis ROR Labs Reviewed Laboratory Results Reviewed?: Yes Result Diagrams: 04/20/20 05:30 04/20/20 05:30 Laboratory: WBC 4.8 X10^3/uL (3.6-10.0) 04/18/20 10:43 RBC 4.03 X10^6/uL (3.5-5.4) 04/18/20 10:43 Hgb 11.6 g/dL (12.0-16.0) L 04/18/20 10:43 Hct 34.2 % (36.0-47.0) L 04/18/20 10:43 MCV 84.8 fL (80.0-100.0) 04/18/20 10:43 MCH 28.8 pg (27.0-34.0) 04/18/20 10:43 MCHC 33.9 g/dL (33.0-35.0) 04/18/20 10:43 RDW 15.7 % (11.6-16.5) 04/18/20 10:43 Plt Count 200 X10^3/uL (150.0-450.0) 04/18/20 10:43 MPV 9.1 fL (7.4-11.0) 04/18/20 10:43 Neut % (Auto) 70.8 % (42.0-75.0) 04/18/20 10:43 Lymph % (Auto) 18.0 % (21.0-51.0) L 04/18/20 10:43 [place] % (Auto) 9.9 % (0.0-13.0) 04/18/20 10:43 Eos % (Auto) 0.2 % (0.9-2.9) L 04/18/20 10:43 Baso % (Auto) 1.1 % (0.2-1.0) H 04/18/20 10:43 Neut # (Auto) 3.4 x10^3/uL (2.2-4.8) 04/18/20 10:43 Lymph # (Auto) 0.9 X10^3/uL (1.3-2.9) L 04/18/20 10:43 [place] # (Auto) 0.5 x10^3/uL (0.3-0.8) 04/18/20 10:43 Eos # (Auto) 0.0 x10^3/uL (0.0-0.2) 04/18/20 10:43 Baso # (Auto) 0.1 X10^3/uL (0.0-0.1) 04/18/20 10:43 Absolute Nucleated RBC 0.0 /100WBC 04/18/20 10:43 ESR 2 MM/HOUR (0-20) 04/18/20 10:43 D-Dimer 0.34 ug/ml (0.0-0.57) 04/18/20 10:43 Sodium 140 mmol/L (136-145) 04/18/20 10:43 Corrected Sodium TNP 04/18/20 10:43 Potassium 3.2 mmol/L (3.5-5.1) L 04/18/20 10:43 Chloride 106 mmol/L (98-107) 04/18/20 10:43 Carbon Dioxide 24.8 mmol/L (21-32) 04/18/20 10:43 BUN 9 mg/dL (7-18) 04/18/20 10:43 Creatinine 0.59 mg/dL (0.55-1.02) 04/18/20 10:43 Est GFR (MDRD) Af Amer > 60 (>60) 04/18/20 10:43 Est GFR (MDRD) Non-Af > 60 (>60) 04/18/20 10:43 Glucose 104 mg/dL (65-99) H 04/18/20 10:43 Calcium 8.6 mg/dL (8.5-10.1) 04/18/20 10:43 Corrected Calcium TNP 04/18/20 10:43 Magnesium 1.7 mg/dL (1.7-2.9) 04/18/20 10:43 Total Bilirubin 0.90 mg/dL (0.2-1.0) 04/18/20 10:43 AST 14 Units/L (15-37) L 04/18/20 10:43 ALT 18 Units/L (12-78) 04/18/20 10:43 Alkaline Phosphatase 53 Units/L (46-116) 04/18/20 10:43 Creatine Kinase 48 Units/L (26-192) 04/18/20 10:43 CK-MB (CK-2) < 1.0 ng/mL (0-4.0) 04/18/20 10:43 CK/CKMB % Calc 2.1 % (<4) 04/18/20 10:43 Troponin I < 0.02 ng/mL (0-1.5) 04/18/20 10:43 C-Reactive Protein < 0.50 mg/L (0-3.0) 04/18/20 10:43 Total Protein 7.0 g/dL (6.4-8.2) 04/18/20 10:43 Albumin 3.8 g/dL (3.4-5.0) 04/18/20 10:43 Globulin 3.2 g/dL (2.5-4.5) 04/18/20 10:43 Albumin/Globulin Ratio 1.2 Ratio (1.1-2.1) 04/18/20 10:43 XRAY XRAY Interpreted by: Radiologist (REPORTS NOTED AND DISCUSSED WITH PATIENT AND HER .) and Self EKG Rate: 91 [place]: Normal Rhythm: NSR and PVCs Block: None Hypertrophy: None ST: Ant and Nonsp Opioid Opioid Risk Tool Age (José Miguel box if 16-45): Yes History of Preadolescent Sexual Abuse: No Total: 1 Total Score Risk Category: Low Risk Copyright: Rivas DASH predicting aberrant behaviors Diagnosis Discharge Problem: Acute pain of left shoulder, Intractable pain, Hypokalemia, Tachycardia Instructions Instructions: Shoulder Pain Hypokalemia Degenerative Disk Disease Generalized Anxiety Disorder, Adult Acute Pain, Adult Forms: Excuse From Work or School Precautions for COVID19 Patient Portal Social Distancing
[2020-04-18] MEDS ORDERED: DILAUDID INJ ONE ×2 (09:17→09:41)
[2020-04-18] MEDS ORDERED: ZOFRAN INJ 4 MG VIAL ONE (09:17)
[2020-04-18] MEDS ORDERED: ZOFRAN INJ 4 MG VIAL IVP ONE (09:28)
[2020-04-18] MEDS: DILAUDID INJ IVP ONE ×2 (09:29→10:20)
[2020-04-18] MEDS ORDERED: ATIVAN INJ 2 MG VIAL ONE (09:41)
[2020-04-18] MEDS ORDERED: DILAUDID INJ IVP ONE ×3 (09:58→10:22)
[2020-04-18] MEDS ORDERED: ATIVAN INJ 2 MG VIAL IVP ONE ×2 (09:58→10:21)
--- NOTE | 2020-04-18 10:09 | RAD ---
HISTORYLeft shoulder pain, posterior chest painSTUDYCHEST, 1 [id number]/26/2019FINDINGSThe trachea is midline. The cardiac silhouette is unremarkable . The lungs are clear without focal infiltrate or effusion. The bony thorax is unremarkable. Hydroxyapatite deposition noted adjacent to the right humeral head footplate.IMPRESSIONNo acute cardiopulmonary disease.Hydroxyapatite deposition adjacent to the right humeral head footplate, findings can be seen in setting of right shoulder pain secondary to calcific tendinitis.Electronically signed by: DORCAS COLES (Apr 18, 2020 10:07:19)
--- NOTE | 2020-04-18 10:21 | RAD ---
Exam:SHOULDER, LEFTIndication: Left shoulder painComparison: [None available]Findings: [The [left] shoulder demonstrates no acute fracture or malalignment. There is no localizing soft tissue swelling.The acromioclavicular and glenohumeral joints are without degenerative or inflammatory change.No displaced rib fracture or acute cardiopulmonary abnormality within the visualized thorax.Impression: No acute radiographic abnormality.]Electronically signed by: DORCAS COLES (Apr 18, 2020 10:19:35)
[2020-04-18 10:54] LABS: BASOPHILS # (AUTO) 0.1 X10^3/uL (0.0-0.1); BASOPHILS % (AUTO) 1.1 % (0.2-1.0); EOSINOPHILS % (AUTO) 0.2 % (0.9-2.9); HEMATOCRIT 34.2 % (36.0-47.0); HEMOGLOBIN 11.6 g/dL (12.0-16.0); LYMPHOCYTES # (AUTO) 0.9 X10^3/uL (1.3-2.9); MEAN CORPUSCULAR HEMOGLOBIN 28.8 pg (27.0-34.0); MEAN CORPUSCULAR HGB CONC 33.9 g/dL (33.0-35.0); MEAN CORPUSCULAR VOLUME 84.8 fL (80.0-100.0); MEAN PLATELET VOLUME 9.1 fL (7.4-11.0); MONOCYTES # (AUTO) 0.5 x10^3/uL (0.3-0.8); MONOCYTES % (AUTO) 9.9 % (0.0-13.0); NEUTROPHILS # (AUTO) 3.4 x10^3/uL (2.2-4.8); NEUTROPHILS % (AUTO) 70.8 % (42.0-75.0); PLATELET COUNT 200 X10^3/uL (150.0-450.0); RED BLOOD COUNT 4.03 X10^6/uL (3.5-5.4); RED CELL DISTRIBUTION WIDTH 15.7 % (11.6-16.5); WHITE BLOOD COUNT 4.8 X10^3/uL (3.6-10.0)
[2020-04-18 11:10] LABS: BLOOD UREA NITROGEN 9 mg/dL (7-18); CALCIUM 8.6 mg/dL (8.5-10.1); CARBON DIOXIDE 24.8 mmol/L (21-32); CHLORIDE 106 mmol/L (98-107); CREATININE 0.59 mg/dL (0.55-1.02); SODIUM 140 mmol/L (136-145); TROPONIN I < 0.02 ng/mL (0-1.5); eGFR NON BLACK RACES > 60 (>60)
[2020-04-18 11:14] LABS: ALANINE AMINOTRANSFERASE 18 Units/L (12-78); ALBUMIN 3.8 g/dL (3.4-5.0); ALKALINE PHOSPHATASE 53 Units/L (46-116); ASPARTATE AMINO TRANSFERASE 14 Units/L (15-37); CKMB % 2.1 % (<4); CREATINE KINASE 48 Units/L (26-192); CREATINE KINASE MB < 1.0 ng/mL (0-4.0)
[2020-04-18] MEDS ORDERED: TORADOL 30 MG VIAL ONE (13:29)
[2020-04-18] MEDS ORDERED: LOPRESSOR TAB 25 MG PO ONE (14:22)
[2020-04-18] MEDS ORDERED: SYNTHROID 25 mcg TAB PO ONE (14:24)
[2020-04-18] MEDS ORDERED: DILAUDID INJ IVP PRN (15:34)
[2020-04-18] MEDS ORDERED: TORADOL 30 MG VIAL IVP PRN (15:34)
[2020-04-18] MEDS ORDERED: ZOFRAN INJ 4 MG VIAL IVP PRN (15:34)
[2020-04-18] MEDS ORDERED: NS 1000 ML 1,000 ML ONE (16:16)
[2020-04-18] MEDS: NS 1000 ML 1,000 ML IV SCH (16:31)
[2020-04-18] MEDS ORDERED: POTASSIUM CHL 60 MEQ/NS 0.45% 500 ML IV PRN (17:14)
[2020-04-18] MEDS ORDERED: MICRO K EXTEN CAP 10 MEQ PO PRN (17:14)
[2020-04-18] MEDS ORDERED: K-RIDER 10 MEQ/NS 100 ML 10 MEQ/100 ML BAG IV PRN (17:14)
[2020-04-18] MEDS ORDERED: POTASSIUM CHL 40 MEQ/NS 0.45% 500 ML IV PRN (17:14)
[2020-04-18] MEDS ORDERED: K-DUR TAB 20 MEQ PO PRN (17:14)
[2020-04-18] MEDS ORDERED: KLOR-CON PO PRN (17:14)
[2020-04-18] MEDS ORDERED: POTASSIUM CHLORIDE LIQ 20 MEQ UDC PO PRN (17:14)
[2020-04-18] MEDS ORDERED: SYNTHROID 25 mcg TAB ONE (18:08)
[2020-04-18 18:26] LABS: BILIRUBIN,URINE NEGATIVE (NEGATIVE); BLOOD/HEMOGLOBIN,URINE 1+ (NEGATIVE); GLUCOSE, URINE NEGATIVE (NEGATIVE); KETONES,URINE 4+ (NEGATIVE); LEUKOCYTE ESTERASE ,URINE 1+ (NEGATIVE); NITRITES,URINE NEGATIVE (NEGATIVE); PROTEIN,URINE 2+ (NEGATIVE); UROBILINOGEN,URINE NORMAL (NORMAL)
[2020-04-18] MEDS: MAGNESIUM SULFATE 1 GRAM/100 mL PREMIX 1 GM/100 ML BAG IV PRN ×2 (18:48→20:12)
[2020-04-18 19:02] LABS: APPEARANCE,URINE HAZY (CLEAR); BACTERIA,URINE 2+ /HPF (NEGATIVE); COLOR,URINE YELLOW (YELLOW); RBC,URINE 0-2 /HPF (0-3); SQUAMOUS EPITHELIAL CELL,UR MODERATE /HPF (NEGATIVE)
[2020-04-18 19:03] LABS: AMORPHOUS SEDIMENT,UR 2+ /HPF (NEGATIVE)
[2020-04-18] MEDS ORDERED: BENADRYL INJ 50 MG VIAL IVP ONE (23:43)
[2020-04-18] MEDS ORDERED: BENADRYL INJ 50 MG VIAL ONE (23:51)
[2020-04-19] MEDS: NS 1000 ML 1,000 ML IV SCH ×4 (03:30→21:38)
[2020-04-19 06:22] LABS: ALANINE AMINOTRANSFERASE 13 Units/L (12-78); ALBUMIN 3.1 g/dL (3.4-5.0); ALKALINE PHOSPHATASE 41 Units/L (46-116); ASPARTATE AMINO TRANSFERASE 11 Units/L (15-37); BLOOD UREA NITROGEN 8 mg/dL (7-18); CALCIUM 7.7 mg/dL (8.5-10.1); CARBON DIOXIDE 22.4 mmol/L (21-32); CHLORIDE 108 mmol/L (98-107); COR CA(FOR HYPOALB) 8.4 mg/dL (8.5-10.1); CREATININE 0.52 mg/dL (0.55-1.02); MAGNESIUM 2.1 mg/dL (1.7-2.9); SODIUM 141 mmol/L (136-145); TOTAL PROTEIN 5.8 g/dL (6.4-8.2); eGFR NON BLACK RACES > 60 (>60)
[2020-04-19 06:23] LABS: BASOPHILS % (AUTO) 0.6 % (0.2-1.0); EOSINOPHILS % (AUTO) 0.3 % (0.9-2.9); HEMATOCRIT 30.2 % (36.0-47.0); HEMOGLOBIN 10.3 g/dL (12.0-16.0); LYMPHOCYTES # (AUTO) 1.6 X10^3/uL (1.3-2.9); LYMPHOCYTES % (AUTO) 20.6 % (21.0-51.0); MEAN CORPUSCULAR HEMOGLOBIN 29.1 pg (27.0-34.0); MEAN CORPUSCULAR HGB CONC 34.1 g/dL (33.0-35.0); MEAN CORPUSCULAR VOLUME 85.4 fL (80.0-100.0); MEAN PLATELET VOLUME 9.4 fL (7.4-11.0); MONOCYTES # (AUTO) 0.8 x10^3/uL (0.3-0.8); MONOCYTES % (AUTO) 10.3 % (0.0-13.0); NEUTROPHILS # (AUTO) 5.4 x10^3/uL (2.2-4.8); NEUTROPHILS % (AUTO) 68.2 % (42.0-75.0); PLATELET COUNT 189 X10^3/uL (150.0-450.0); RED BLOOD COUNT 3.54 X10^6/uL (3.5-5.4); RED CELL DISTRIBUTION WIDTH 15.4 % (11.6-16.5)
[2020-04-19] MEDS ORDERED: DILAUDID INJ IVP PRN (09:00)
[2020-04-19] MEDS ORDERED: PHENERGAN TAB 25 MG PO PRN (09:11)
[2020-04-19 09:26] LABS: FREE T4 (FREE THYROXINE) 0.8 ng/dL (0.76-1.46); TSH (3RD GENERATION) 3.304 uIU/mL (0.358-3.74)
[2020-04-19] MEDS ORDERED: ATIVAN TAB 1 MG ONE (09:39)
[2020-04-19] MEDS: ATIVAN TAB 1 MG PO PRN (09:40)
[2020-04-19] MEDS: SYNTHROID 25 mcg TAB PO SCH (10:00)
[2020-04-19] MEDS: FLEXERIL TAB 10 MG PO SCH ×3 (10:16→21:00)
[2020-04-19] MEDS ORDERED: NS 1000 ML 1,000 ML ONE (10:18)
[2020-04-19] MEDS ORDERED: FLEXERIL TAB 10 MG ONE (10:18)
[2020-04-19] MEDS: PROTONIX INJ 40 MG VIAL IVP SCH (11:00)
[2020-04-19] MEDS: SOLU-Medrol 40 MG VIAL IVP SCH ×3 (11:00→21:45)
[2020-04-19] MEDS: HEMOCYTE-PLUS PO SCH (11:44)
[2020-04-19] MEDS: NORCO 5/325 MG TAB PO PRN ×2 (12:39→21:37)
--- NOTE | 2020-04-19 13:47 | MRI ---
HISTORYHX DDD, LEFT ARM WEAKNESS, LEFT ARM PAIN, NECK PAINSTUDYCERVICAL W/O CONCOMPARISONDecember 2019TECHNIQUEMultiplanar multisequence MRI of the cervical spine was obtained utilizing standard departmental protocol.FINDINGSAlignment of the cervical spine is maintained. No abnormal signal characteristics of the bone marrow can be identified. No evidence for fracture or significant bone or edema can be seen. The surrounding soft tissues are unremarkable. No abnormal cord signal is seenC2 -- C3: UnremarkableC3 -- C4: UnremarkableC4 -- C5: Minimal disc ridging with no significant stenosis. These findings are unchanged.C5 -- C6: Mild disc ridging with a small right paracentral disc protrusion which causes some mild narrowing of the central canal with focal contouring of the cord and some minimal neural foraminal narrowing on the right which is unchanged compared to prior.C6 -- C7: Broad-based disc ridging with a left paracentral disc protrusion which causes some mild narrowing of the central canal and neural foraminal on the left which is also unchangedC7 -- T1: UnremarkableIMPRESSIONStable degenerative changes as above with some mild narrowing of the central canal at C5-6 and C6-7 some mild right-sided neural foraminal narrowing at C5-6 and left-sided neural foraminal at C6-7. These findings are unchanged.Electronically signed by: JACINTA RODRIGUEZ (Apr 19, 2020 13:46:19)
[2020-04-19] MEDS ORDERED: MYLICON TAB 80 MG CHEW PO PRN (16:42)
[2020-04-19] MEDS ORDERED: MYLICON TAB 80 MG CHEW PO ONE (16:43)
--- NOTE | 2020-04-19 17:37 | DR.H&P ---
H&P - History & Physical for Day of: H&P Date: 04/18/20 - Chief Complaint Chief Complaint: sudden onset severe left shoulder pain, left side neck pain - History of Present Illness History of Present Illness: PT IS 44 WF ER ADMISSION WITH CO SUDDEN ONSET OF LEFT SHOULDER PAIN, PT REPORTS PAIN IN HER LEFT SIDE OF NECK AND WEAKNESS IN LEFT ARM. PT HAD PMH OF C SPINE DDD AND HX OF LEFT SHOULDER DISLOCATIONS. PT SHOULDER XRAY IN ER. PT HAS PMH OF HASHIMOTOS, HERMELINDO AND ANEMIA. PT ADMITTED FOR TREATMENT OF ACUTE ILLNESS. - Past Medical History Past Medical History: Anemia, Anxiety, Headaches, Hypertension Additional Medical History: MVP, HASHIMOTOS - Past Surgical History Surgical History: Appendectomy, Cholecystectomy - Family History Family Medical History: Diabetes Mellitus, Cancer, Hypertension - Social History Does patient currently use any type of tobacco product: No Have you used tobacco products in the last 12 months: No Type of Tobacco Use: None Does any household member use tobacco: No Alcohol Use: None Drug Use: None - Medications Home Medications: Penicillins Allergy (Verified 04/18/20 09:07) CONTINUE taking the following medications cyanocobalamin (vitamin B-12) 1,000 mcg SUBCUT QWEEK 04/18/20 [History] ergocalciferol (vitamin D2) [Vitamin D2] 1,250 mcg PO QWEEK 04/18/20 [History] ferrous sulfate 325 mg PO DAILY 04/18/20 [History] levothyroxine 25 mcg PO DAILY 04/18/20 [History] tamsulosin 0.4 mg PO DAILY 04/18/20 [History] New Prescriptions prednisone 10 mg PO DAILY #18 tab 04/19/20 [Rx] - Review of Systems Constitutional: No Symptoms Reported Eyes: No Symptoms Reported ENT: No Symptoms Reported Respiratory: No Symptoms Reported Gastrointestinal: Nausea Genitourinary: No Symptoms Reported Musculoskeletal: Shoulder Pain, Neck Pain Skin: No Symptoms Reported Neurological: Weakness (TO LEFT ARM) - Physical Exam Vital Signs: Temperature 98.0 F Pulse Rate [Right Brachial] 92 Pulse Rate 95 Respiratory Rate 20 Blood Pressure [Left Arm] 108/66 Blood Pressure [Right Arm] 102/58 Blood Pressure 104/58 O2 Sat by Pulse Oximetry 100 Oriented: Normal Eyes: Normal Ear: Normal Nose: Injected Throat: Normal Respiratory: Clear Throughout Cardiovascular: Tachycardia. negative: Edema : Normal Auscultation: Bowel Sounds: Normal Palpation: Normal Tenderness: Normal Skin: Normal Musculoskeletal: Left, Shoulder, Tender (CERVICAL SPINE MUSCLES) Psychiatric: Anxiety Mood Description: Anxious Affect: Anxious Speech Pattern: Clear, Appropriate - Assessment/Plan (1) Acute pain of left shoulder Status: Acute Plan: ADMIT, XRAY SHOULDER ON ADMISSION. CXR, EKG. CE, BP MONITORING, PAIN CONTROL. VERIFY HOME MEDICATION, CARDIAC MONITORING (2) Cervical spine degeneration Status: Acute (3) Hypokalemia Status: Acute (4) Anxiety Status: Acute - Allergies Allergies/Adverse Reactions: Allergies Allergy/AdvReac Type Severity Reaction Status Date / Time Penicillins Allergy Verified 04/18/20 09:07
--- NOTE | 2020-04-19 17:43 | PCM.PROG ---
Progress Note - Progress Note for Day of Date of Exam: 04/19/20 - Subjective Subjective: PT IS 44 WF ER ADMISSION WITH INTRACTABLE LEFT SHOULDER PAIN, PAIN TO LEFT SIDE HER NECK WITH CO RADIATING PAIN. PT HAD CE, NEGATIVE WITH SHOULDER XRAY REVEALING NOT ACUTE INJURY. PT HAS PMH OF DDD WITH RADICULOPATHY. PT HAD MRI C SPINE THIS AM, STARTED ON MUSCLE RELAXER AND IV SOLU MEDROL. OBTAINED CRP AND SED RATE, OBTAIN COPY OF LAST MRI OF CSPINE - Past Medical Family Social History Past Med/Fam/Surg Hx: No changes since H&P Allergies: Allergies Penicillins Allergy (Verified 04/18/20 09:07) - Review of Systems ROS: No change since H&P - Vital Signs and I&O's Vital Signs: Temperature 98.0 F Pulse Rate [Right Brachial] 92 Pulse Rate 95 Respiratory Rate 20 Blood Pressure [Left Arm] 108/66 Blood Pressure [Right Arm] 102/58 Blood Pressure 104/58 O2 Sat by Pulse Oximetry 100 Intake and Output: Intake & Output 04/17/20 04/18/20 04/19/20 04/20/20 12:59 11:59 11:59 11:59 Intake Total 2360 / 2360 120 / 120 Balance 2360 / 2360 120 / 120 - Physical Exam Oriented: Normal Eyes: Normal Ear: Normal Nose: Injected Throat: Normal Respiratory: Normal Cardiovascular: Tachycardia. negative: Edema : Normal Auscultation: Bowel Sounds: Normal Tenderness: Normal Skin: Normal Musculoskeletal: Left, Shoulder, Tender (CERVICAL SPINE MUSCLES) Psychiatric: Anxiety Mood Description: Anxious Affect: Anxious Speech Pattern: Clear, Appropriate - Laboratory and Diagnostics Result Diagrams: 04/19/20 05:08 04/19/20 05:08 Labs: 04/18/20 18:00 Urine,Clean Catch Urine Culture - Preliminary Laboratory WBC 8.0 X10^3/uL (3.6-10.0) 04/19/20 05:08 RBC 3.54 X10^6/uL (3.5-5.4) 04/19/20 05:08 Hgb 10.3 g/dL (12.0-16.0) L 04/19/20 05:08 Hct 30.2 % (36.0-47.0) L 04/19/20 05:08 MCV 85.4 fL (80.0-100.0) 04/19/20 05:08 MCH 29.1 pg (27.0-34.0) 04/19/20 05:08 MCHC 34.1 g/dL (33.0-35.0) 04/19/20 05:08 RDW 15.4 % (11.6-16.5) 04/19/20 05:08 Plt Count 189 X10^3/uL (150.0-450.0) 04/19/20 05:08 MPV 9.4 fL (7.4-11.0) 04/19/20 05:08 Neut % (Auto) 68.2 % (42.0-75.0) 04/19/20 05:08 Lymph % (Auto) 20.6 % (21.0-51.0) L 04/19/20 05:08 [place] % (Auto) 10.3 % (0.0-13.0) 04/19/20 05:08 Eos % (Auto) 0.3 % (0.9-2.9) L 04/19/20 05:08 Baso % (Auto) 0.6 % (0.2-1.0) 04/19/20 05:08 Neut # (Auto) 5.4 x10^3/uL (2.2-4.8) H 04/19/20 05:08 Lymph # (Auto) 1.6 X10^3/uL (1.3-2.9) 04/19/20 05:08 [place] # (Auto) 0.8 x10^3/uL (0.3-0.8) 04/19/20 05:08 Eos # (Auto) 0.0 x10^3/uL (0.0-0.2) 04/19/20 05:08 Baso # (Auto) 0.0 X10^3/uL (0.0-0.1) 04/19/20 05:08 Absolute Nucleated RBC 0.0 /100WBC 04/19/20 05:08 ESR 2 MM/HOUR (0-20) 04/18/20 10:43 D-Dimer 0.34 ug/ml (0.0-0.57) 04/18/20 10:43 Sodium 141 mmol/L (136-145) 04/19/20 05:08 Corrected Sodium TNP 04/19/20 05:08 Potassium 4.0 mmol/L (3.5-5.1) 04/19/20 05:08 Chloride 108 mmol/L (98-107) H 04/19/20 05:08 Carbon Dioxide 22.4 mmol/L (21-32) 04/19/20 05:08 BUN 8 mg/dL (7-18) 04/19/20 05:08 Creatinine 0.52 mg/dL (0.55-1.02) L 04/19/20 05:08 Est GFR (MDRD) Af Amer > 60 (>60) 04/19/20 05:08 Est GFR (MDRD) Non-Af > 60 (>60) 04/19/20 05:08 Glucose 92 mg/dL (65-99) 04/19/20 05:08 Calcium 7.7 mg/dL (8.5-10.1) L 04/19/20 05:08 Corrected Calcium 8.4 mg/dL (8.5-10.1) L 04/19/20 05:08 Magnesium 2.1 mg/dL (1.7-2.9) 04/19/20 05:08 Total Bilirubin 0.70 mg/dL (0.2-1.0) 04/19/20 05:08 AST 11 Units/L (15-37) L 04/19/20 05:08 ALT 13 Units/L (12-78) 04/19/20 05:08 Alkaline Phosphatase 41 Units/L (46-116) L 04/19/20 05:08 Creatine Kinase 48 Units/L (26-192) 04/18/20 10:43 CK-MB (CK-2) < 1.0 ng/mL (0-4.0) 04/18/20 10:43 CK/CKMB % Calc 2.1 % (<4) 04/18/20 10:43 Troponin I < 0.02 ng/mL (0-1.5) 04/18/20 10:43 C-Reactive Protein < 0.50 mg/L (0-3.0) 04/18/20 10:43 Total Protein 5.8 g/dL (6.4-8.2) L 04/19/20 05:08 Albumin 3.1 g/dL (3.4-5.0) L 04/19/20 05:08 Globulin 2.7 g/dL (2.5-4.5) 04/19/20 05:08 Albumin/Globulin Ratio 1.1 Ratio (1.1-2.1) 04/19/20 05:08 Free T4 0.80 ng/dL (0.76-1.46) 04/19/20 05:05 TSH 3rd Generation 3.304 uIU/mL (0.358-3.74) 04/19/20 05:05 Specimen Type Clean catch urine 04/18/20 18:00 Urine Color Yellow (YELLOW) 04/18/20 18:00 Urine Appearance Hazy (CLEAR) 04/18/20 18:00 Urine pH 5.0 (5.0 - 8.0) 04/18/20 18:00 Ur Specific [place] 1.030 (1.000-1.030) 04/18/20 18:00 Urine Protein 2+ (NEGATIVE) 04/18/20 18:00 Urine Glucose (UA) Negative (NEGATIVE) 04/18/20 18:00 Urine Ketones 4+ (NEGATIVE) 04/18/20 18:00 Urine Occult Blood 1+ (NEGATIVE) 04/18/20 18:00 Urine Nitrite Negative (NEGATIVE) 04/18/20 18:00 Urine Bilirubin Negative (NEGATIVE) 04/18/20 18:00 Urine Urobilinogen Normal (NORMAL) 04/18/20 18:00 Ur Leukocyte Esterase 1+ (NEGATIVE) 04/18/20 18:00 Urine RBC 0-2 /HPF (0-3) 04/18/20 18:00 Urine WBC 3-5 /HPF (0-5) 04/18/20 18:00 Ur Squamous Epith Cells Moderate /HPF (NEGATIVE) 04/18/20 18:00 Amorphous Sediment 2+ /HPF (NEGATIVE) 04/18/20 18:00 Urine Bacteria 2+ /HPF (NEGATIVE) 04/18/20 18:00 Ur Culture Indicated? Yes/culture set up 04/18/20 18:00 - Plan (1) Cervical spine degeneration Status: Acute Qualifiers: Spinal osteoarthritis complication: with radiculopathy Qualified Code(s): M47.22 - Other spondylosis with radiculopathy, cervical region Plan: MRI CSPINE, IV SOLU MEDROL. PAIN CONTROL, TOPICAL DICLOFENAC. CONTINUE HOME MEDICATIONS. CRP, SED RATE, PT TOLERATED (2) Acute pain of left shoulder Status: Acute Plan: XRAY SHOULDER ON ADMISSION. CXR, EKG. CE, BP MONITORING, PAIN CONTROL. VERIFY HOME MEDICATION, CARDIAC MONITORING (3) Hypokalemia Status: Acute (4) Anxiety Status: Acute
[2020-04-19] MEDS: VOLTAREN 1 % GEL MULTI DOSE TUBE TOP SCH ×2 (18:03→21:00)
[2020-04-19] MEDS ORDERED: COLACE CAP 100 MG PO SCH (21:00)
[2020-04-20] MEDS: NS 1000 ML 1,000 ML IV SCH ×2 (01:34→08:50)
[2020-04-20] MEDS: NORCO 5/325 MG TAB PO PRN ×2 (03:00→05:38)
[2020-04-20] MEDS: ATIVAN TAB 1 MG PO PRN (03:00)
[2020-04-20] MEDS: TORADOL 15 MG VIAL IVP PRN ×2 (03:00→04:00)
[2020-04-20 06:14] LABS: BASOPHILS % (AUTO) 0 % (0.2-1.0); HEMATOCRIT 31.7 % (36.0-47.0); HEMOGLOBIN 10.6 g/dL (12.0-16.0); LYMPHOCYTES # (AUTO) 0.6 X10^3/uL (1.3-2.9); LYMPHOCYTES % (AUTO) 4.9 % (21.0-51.0); MEAN CORPUSCULAR HEMOGLOBIN 29.1 pg (27.0-34.0); MEAN CORPUSCULAR HGB CONC 33.4 g/dL (33.0-35.0); MEAN PLATELET VOLUME 9.8 fL (7.4-11.0); MONOCYTES # (AUTO) 0.2 x10^3/uL (0.3-0.8); MONOCYTES % (AUTO) 1.7 % (0.0-13.0); NEUTROPHILS # (AUTO) 10.9 x10^3/uL (2.2-4.8); NEUTROPHILS % (AUTO) 93.4 % (42.0-75.0); PLATELET COUNT 199 X10^3/uL (150.0-450.0); RED BLOOD COUNT 3.64 X10^6/uL (3.5-5.4); RED CELL DISTRIBUTION WIDTH 15.6 % (11.6-16.5); WHITE BLOOD COUNT 11.6 X10^3/uL (3.6-10.0)
[2020-04-20] MEDS: SOLU-Medrol 40 MG VIAL IVP SCH (06:30)
[2020-04-20] MEDS: FLEXERIL TAB 10 MG PO SCH (06:30)
[2020-04-20 06:34] LABS: ALANINE AMINOTRANSFERASE 16 Units/L (12-78); ALBUMIN 3.4 g/dL (3.4-5.0); ALKALINE PHOSPHATASE 47 Units/L (46-116); ASPARTATE AMINO TRANSFERASE 13 Units/L (15-37); BLOOD UREA NITROGEN 6 mg/dL (7-18); CALCIUM 8.4 mg/dL (8.5-10.1); CARBON DIOXIDE 23.3 mmol/L (21-32); CHLORIDE 108 mmol/L (98-107); COR NA(FOR HYPERGLY) 143 mmol/L (136-145); CREATININE 0.59 mg/dL (0.55-1.02); SODIUM 142 mmol/L (136-145); TOTAL PROTEIN 6.4 g/dL (6.4-8.2); eGFR NON BLACK RACES > 60 (>60)
[2020-04-20 07:28] LABS: PLATELET MORPHOLOGY COMMENT NORMAL (NORMAL)
[2020-04-20] MEDS: SYNTHROID 25 mcg TAB PO SCH (08:48)
[2020-04-20] MEDS: PROTONIX INJ 40 MG VIAL IVP SCH (08:48)
[2020-04-20] MEDS: HEMOCYTE-PLUS PO SCH (08:49)
[2020-04-20] MEDS: VOLTAREN 1 % GEL MULTI DOSE TUBE TOP SCH (08:50)
[2020-04-20 09:08] VITALS: BP 113/55
== END 2020-04-20 10:45 | disposition home or self-care (01) ==
LOC: ER 09:05 → MED/SURG 09:05
PROVIDERS: ADMIT Internal Medicine; ATTEND Internal Medicine